=== PATIENT | female | born 1935 | race Caucasian/White ===

== ENCOUNTER 2019-08-19 16:48 | Inpatient (IN) | payer OTHER ==
[~2019-08-19] VITALS: Ht 147.3 cm; Wt 49.9 kg
[2019-08-19] MEDS ORDERED: COZAAR25 MG PO (17:07)
[2019-08-19] MEDS ORDERED: ZOCOR20 MG PO (17:08)
[2019-08-19] MEDS ORDERED: NORVASC5 MG PO (17:08)
[2019-08-19] MEDS ORDERED: BUMETANIDE0.5 MG PO (17:10)
[2019-08-19] MEDS ORDERED: DOXAZOSIN MESYLA4 MG PO (17:12)
[2019-08-19] MEDS ORDERED: NAMENDA10 MG PO (17:12)
[2019-08-19] MEDS ORDERED: GLIPIZIDE XL5 MG PO (17:12)
[2019-08-19] MEDS ORDERED: RISPERDAL0.5 MG (17:14)
[2019-08-19] MEDS ORDERED: LANTUS SOL100 UNIT/1 SQ (17:15)
[2019-08-22] MEDS ORDERED: JARDIANCE10 MG PO (08:48)
[2019-08-22] MEDS ORDERED: QUETIAPINE FUMA50 MG PO (08:49)
[2019-08-22] MEDS ORDERED: SERTRALINE HCL25 MG PO (08:49)
[2019-08-22] MEDS ORDERED: ADULT LOW DOSE81 M1 PO (08:50)
[2019-08-22] MEDS ORDERED: GLIPIZIDE5 MG PO (08:51)
[2019-08-22] MEDS ORDERED: LOSARTAN POTAS100 MG PO (08:52)
[2019-08-23] MEDS ORDERED: ULTRACET PO (07:56)
[2019-08-23] MEDS ORDERED: ELIQUIS2.5 MG PO (07:56)
== END 2019-08-23 13:09 | DRG 482 ==
LOC: ER 16:48 → SURH 20:12
PROVIDERS: ADMIT Orthopaedic Surgery
PROC: 0QS636Z Reposition Right Upper Femur with Intramedullary Internal Fixation Device, Percutaneous Approach (ICD-10-PCS; principal; 2019-08-20 07:00)
PROC: 30233N1 Transfusion of Nonautologous Red Blood Cells into Peripheral Vein, Percutaneous Approach (ICD-10-PCS; 2019-08-21)
DX: S72.141A Displaced intertrochanteric fracture of right femur, initial encounter for closed fracture (principal); W18.39XA Other fall on same level, initial encounter; M81.0 Age-related osteoporosis without current pathological fracture; F03.90 Unspecified dementia, unspecified severity, without behavioral disturbance, psychotic disturbance, mood disturbance, and anxiety; E11.22 Type 2 diabetes mellitus with diabetic chronic kidney disease; E11.65 Type 2 diabetes mellitus with hyperglycemia; D64.9 Anemia, unspecified; I12.9 Hypertensive chronic kidney disease with stage 1 through stage 4 chronic kidney disease, or unspecified chronic kidney disease; N18.3 Chronic kidney disease, stage 3 (moderate); Z79.4 Long term (current) use of insulin